=== PATIENT | male | born 1975 | race Two or more races ===

== ENCOUNTER 2021-09-07 12:25 | Emergency (ER) | payer MEDICAID, OTHER ==
[~2021-09-07] VITALS: Ht 167.6 cm; Wt 106.8 kg
[2021-09-07 12:39] VITALS: BP 174/78
[2021-09-07] MEDS ORDERED: ibuprofen tablet 400 MG TABLET PO ONE (14:45)
== END 2021-09-07 15:16 | disposition home or self-care (01) ==
LOC: ER 12:25
DX: S93.412A Sprain of calcaneofibular ligament of left ankle, initial encounter (principal); W19.XXXA Unspecified fall, initial encounter; Y93.89 Activity, other specified; Y92.89 Other specified places as the place of occurrence of the external cause; Y99.8 Other external cause status
CPT/HCPCS: 29515; 73610; 73630; 99284; L1930; 99285